=== PATIENT | female | born 1985 | race Caucasian/White ===

== ENCOUNTER → 2019-04-03 | Outpatient (CLI) | payer OTHER ==
--- NOTE | 2019-04-03 15:36 | XR ---
EXAMINATION TYPE: XR knee complete bilateral DATE OF EXAM: 04/03/2019 CLINICAL HISTORY: Chronic bilateral knee pain with no known injury. TECHNIQUE: Three views of the bilateral knees were obtained. COMPARISON: None. FINDINGS: There is no acute fracture/dislocation evident in either knee. Small suprapatellar entheso phyte is seen in the right at the insertion of the quadriceps tendon. Small suprapatellar joint effus ion is also noted on the right. Trace suprapatellar joint effusion on the left. The tri-compartment joint spaces appear within normal limits. The overlying soft tissue appears unremarkable. IMPRESSION: There is no acute fracture or dislocation in either knee. Small right and trace left sup rapatellar joint effusions are seen with small enthesophyte at the insertion of the quadriceps tendon on the right.
--- NOTE | 2019-04-05 12:31 | ECHOF ---
Referral Reason:R01.1 Cardiac murmur MEASUREMENTS -------- HEIGHT: 157.5 cm WEIGHT: 97.1 kg BP: RVIDd: 3.2 cm (< 3.3) IVSd: 1.0 cm (0.6 - 1.1) LVIDd: 4.3 cm (3.9 - 5.3) LVPWd: 1.2 cm (0.6 - 1.1) IVSs: 2.0 cm LVIDs: 1.8 cm LVPWs: 1.7 cm LAESV Index (A-L): 26.95 ml/m Ao Diam: 2.2 cm (2.0 - 3.7) AV Cusp: 1.7 cm (1.5 - 2.6) LA Diam: 3.6 cm (2.7 - 3.8) MV E Gildardo: 1.11 m/s MV DecT: 152 ms MV A Gildardo: 0.79 m/s MV E/A Ratio: 1.40 RAP: 5.00 mmHg RVSP: 33.70 mmHg FINDINGS -------- Resting tachycardia (HR>100bpm). This was a technically good study. The left ventricular size is normal. Left ventricular wall thickness is normal. There is normal g lobal left ventricular contractility. Overall left ventricular systolic function is normal with, an EF between 60 - 65 %. The diastolic filling pattern is normal for the age of the patient 9.14. The right ventricular wall thickness is normal measuring < 5mm. Normal LA size by volume 22+/-6 ml/m2. The right atrial size is normal. Interatrial and interventricular septum intact. The aortic valve is trileaflet and appears structurally normal. There is no evidence of aortic sten osis. No mitral regurgitation. Mild tricuspid regurgitation present. There is borderline pulmonary hypertension. The right ventr icular systolic pressure, as measured by Doppler, is 33.70mmHg. There is no pulmonic regurgitation present. The aortic root size is normal. Normal inferior vena cava with normal inspiratory collapse consistent with estimated right atrial pre ssure of 5 mmHg. There is no pericardial effusion. CONCLUSIONS -------- 1. Resting tachycardia (HR>100bpm). 2. This was a technically good study. 3. The left ventricular size is normal. 4. Left ventricular wall thickness is normal. 5. There is normal global left ventricular contractility. 6. Overall left ventricular systolic function is normal with, an EF between 60 - 65 %. 7. The diastolic filling pattern is normal for the age of the patient 9.14 8. The right ventricular wall thickness is normal measuring < 5mm. 9. Normal LA size by volume 22+/-6 ml/m2. 10. The right atrial size is normal. 11. Interatrial and interventricular septum intact. 12. The aortic valve is trileaflet and appears structurally normal. 13. There is no evidence of aortic stenosis. 14. No mitral regurgitation. 15. Mild tricuspid regurgitation present. 16. There is borderline pulmonary hypertension. 17. The right ventricular systolic pressure, as measured by Doppler, is 33.70mmHg. 18. There is no pulmonic regurgitation present. 19. The aortic root size is normal. 20. Normal inferior vena cava with normal inspiratory collapse consistent with estimated right atrial pressure of 5 mmHg. 21. There is no pericardial effusion. CLOSET BUILDER: Brooke Hughes RDCS
== END | disposition home or self-care (01) ==
LOC: RADECHMAIN 13:42
PROVIDERS: ATTEND Pediatrics
DX: I07.1 Rheumatic tricuspid insufficiency (principal); R00.0 Tachycardia, unspecified; R01.1 Cardiac murmur, unspecified; M25.562 Pain in left knee
CPT/HCPCS: 93306

== ENCOUNTER → 2020-03-24 | Outpatient (CLI) | payer OTHER ==
--- NOTE | 2020-03-24 13:51 | US ---
EXAMINATION TYPE: US pelvic complete DATE OF EXAM: 03/24/2020 COMPARISON: NONE CLINICAL HISTORY: N92.6 Irregular menstruation. Irregular menses. TECHNIQUE: Transabdominal (TA). Transabdominal sonographic images of the pelvis were acquired. EXAM MEASUREMENTS: Uterus: 10.4 x 6.0 x 6.6 cm Endometrial Stripe: 1.3 cm Right Ovary: 3.3 x 2.6 x 3.1 cm Left Ovary: 2.3 x 2.1 x 2.0 cm 1. Uterus: Anteverted wnl 2. Endometrium: wnl 3. Right Ovary: Follicle 1.5 cm. 4. Left Ovary: wnl 5. Bilateral Adnexa: wnl 6. Posterior cul-de-sac: wnl Anteverted uterus. Endometrial thickness within normal limits for secretory phase of menstrual cycle. Correlate clinically. Last known menstrual period not provided. No free fluid in pelvic cul-de-sac. Both ovaries seen. No suspicious ovarian enlargement or extraovarian adnexal mass. IMPRESSION: Endometrial thickness needs to be correlated clinically. It is abnormally thickened if pa edda has had menstrual period in last 2 weeks.
--- NOTE | 2020-03-24 17:34 | ECHOF ---
Referral Reason:R01.1 Cardiac Murmur, unspecified MEASUREMENTS -------- HEIGHT: 158.8 cm WEIGHT: 103.4 kg BP: RVIDd: 2.9 cm (< 3.3) IVSd: 1.1 cm (0.6 - 1.1) LVIDd: 3.9 cm (3.9 - 5.3) LVPWd: 1.1 cm (0.6 - 1.1) IVSs: 1.4 cm LVIDs: 2.8 cm LVPWs: 1.4 cm LA Diam: 3.0 cm (2.7 - 3.8) LAESV Index (A-L): 17.17 ml/m Ao Diam: 2.6 cm (2.0 - 3.7) AV Cusp: 2.2 cm (1.5 - 2.6) MV EXCURSION: 18.894 mm (> 18.000) MV EF SLOPE: 111 mm/s (70 - 150) EPSS: 1.3 cm MV E Gildardo: 0.92 m/s MV DecT: 243 ms MV A Gildardo: 0.59 m/s MV E/A Ratio: 1.57 RAP: 5.00 mmHg RVSP: 20.05 mmHg FINDINGS -------- Sinus rhythm. This was a technically good study. The left ventricular size is normal. There is borderline concentric left ventricular hypertrophy. Overall left ventricular systolic function is normal with, an EF between 60 - 65 %. The right ventricle is normal in size. Normal LA size by volume 22+/-6 ml/m2. The right atrium is normal in size. Interatrial and interventricular septum intact. The aortic valve is trileaflet and appears structurally normal. The mitral valve is normal. Mild tricuspid regurgitation present. Right ventricular systolic pressure is normal at < 35 mmHg. Trace/mild (physiologic) pulmonic regurgitation. The aortic root size is normal. Normal inferior vena cava with normal inspiratory collapse consistent with estimated right atrial pre ssure of 5 mmHg. There is no pericardial effusion. CONCLUSIONS -------- 1. The left ventricular size is normal. 2. There is borderline concentric left ventricular hypertrophy. 3. Overall left ventricular systolic function is normal with, an EF between 60 - 65 %. 4. Mild tricuspid regurgitation present. 5. Trace/mild (physiologic) pulmonic regurgitation. 6. There is no pericardial effusion. MOLD BREAKER: Brooke Hughes RDCS
== END | disposition home or self-care (01) ==
LOC: RADUSWWP 12:21
PROVIDERS: ATTEND Pediatrics
DX: I07.1 Rheumatic tricuspid insufficiency (principal); I37.1 Nonrheumatic pulmonary valve insufficiency; N92.6 Irregular menstruation, unspecified
CPT/HCPCS: 76856; 93306

== ENCOUNTER → 2021-04-20 | Outpatient (CLI) | payer OTHER ==
--- NOTE | 2021-04-21 13:26 | ECHOF ---
Referral Reason:R01.1 Murmur MEASUREMENTS -------- HEIGHT: 157.5 cm WEIGHT: 99.8 kg BP: RVIDd: 3.0 cm (< 3.3) IVSd: 1.1 cm (0.6 - 1.1) LVIDd: 4.6 cm (3.9 - 5.3) LVPWd: 1.1 cm (0.6 - 1.1) IVSs: 1.4 cm LVIDs: 2.8 cm LVPWs: 1.6 cm LAESV Index (A-L): 17.95 ml/m Ao Diam: 2.6 cm (2.0 - 3.7) AV Cusp: 1.7 cm (1.5 - 2.6) LA Diam: 3.5 cm (2.7 - 3.8) MV EXCURSION: 19.740 mm (> 18.000) MV EF SLOPE: 85 mm/s (70 - 150) EPSS: 0.3 cm MV E Gildardo: 0.98 m/s MV DecT: 117 ms MV A Gildardo: 0.52 m/s MV E/A Ratio: 1.87 RAP: 5.00 mmHg RVSP: 25.71 mmHg FINDINGS -------- Sinus rhythm. This was a technically adequate study. The left ventricular size is normal. Left ventricular wall thickness is normal. Overall left vent ricular systolic function is normal with, an EF between 55 - 60 %. The diastolic filling pattern is normal for the age of the patient 6.66. The right ventricle is normal in size. Normal LA size by volume 22+/-6 ml/m2. The right atrial size is normal. Interatrial and interventricular septum intact. The aortic valve is trileaflet and appears structurally normal. There is no evidence of aortic regu rgitation. There is no evidence of aortic stenosis. No mitral regurgitation. Mild tricuspid regurgitation present. There is no evidence of pulmonary hypertension. The right v entricular systolic pressure, as measured by Doppler, is 25.71mmHg. There is no pulmonic regurgitation present. The aortic root size is normal. Normal inferior vena cava with normal inspiratory collapse consistent with estimated right atrial pre ssure of 5 mmHg. There is no pericardial effusion. CONCLUSIONS -------- 1. The left ventricular size is normal. 2. Left ventricular wall thickness is normal. 3. Overall left ventricular systolic function is normal with, an EF between 55 - 60 %. 4. The diastolic filling pattern is normal for the age of the patient 6.66 5. Mild tricuspid regurgitation present. RESIDENTIAL ROOFER HELPER: Marielena Rodas RDCS
== END | disposition home or self-care (01) ==
LOC: RADECHMAIN 15:09
PROVIDERS: ATTEND Pediatrics
DX: I07.1 Rheumatic tricuspid insufficiency (principal)
CPT/HCPCS: 93306

== ENCOUNTER → 2021-05-13 | Outpatient (CLI) | payer OTHER ==
[2021-05-14 11:34] LABS: Crab IgE <0.10 kU/L (<0.10); Crab IgE Class CLASS 0; Lobster IgE <0.10 kU/L (<0.10); Lobster IgE Class CLASS 0; Mussel IgE <0.10 kU/L (<0.10); Mussel IgE Class CLASS 0; Salmon IgE <0.10 kU/L (<0.10); Salmon IgE Class CLASS 0; Tuna IgE <0.10 kU/L (<0.10); Tuna IgE Class CLASS 0
== END | disposition home or self-care (01) ==
LOC: LABWHC1 15:31
PROVIDERS: ATTEND Internal Medicine
DX: L29.9 Pruritus, unspecified (principal)
CPT/HCPCS: 36415; 86003